=== PATIENT | female | born 1965 | race Asian ===

== ENCOUNTER 2017-06-16 09:17 | Emergency (ER) | payer MEDICAID ==
[2017-06-16 09:28] VITALS: BP 119/78; PULSE 88; RESP 16; TEMP 97.6; O2SAT 94
--- NOTE | 2017-06-16 09:51 | EDPHY ---
H & P Time Seen by Provider: 06/16/17 09:21 HPI/ROS: CHIEF COMPLAINT: Runny nose History by patient HISTORY OF PRESENT ILLNESS: 51-year-old woman presents complaining of runny and stuffy nose times more than 2 weeks. She describes the mucus from her nose as clear or white. Sometimes associated with some itchy eyes but no itchy throat or sore throat. She denies any cough. She has had no fever. She denies headache. She denies any rash. She has no known seasonal allergies. She is a smoker. She has tried Claritin with minimal relief. REVIEW OF SYSTEMS: As in HPI, and all other systems reviewed and are negative Smoking Status: Never smoked Physical Exam: General Appearance: Alert and no distress. Head: normocephalic, atraumatic, no sinus tenderness Eyes: Pupils equal and round no injection. Ears: TM clear bilat OP: mucus membranes moist, no tonsillar enlargement, no exudates Neck: no meningismus, no cervical nodes, no submandibular nodes Respiratory: Chest is nontender, lungs are clear to auscultation. Cardiac: regular rate and rhythm. Gastrointestinal: Abdomen is soft and nontender, no masses, bowel sounds normal. Musculoskeletal: Neck is supple and nontender. Extremities have full range of motion and are nontender. Skin: No rashes or lesions. Constitutional: Initial Vital Signs Temperature (C) 36.4 C 06/16/17 09:23 Heart Rate 88 06/16/17 09:23 Respiratory Rate 16 06/16/17 09:23 Blood Pressure 119/78 06/16/17 09:23 O2 Sat (%) 94 06/16/17 09:23 O2 Delivery Mode Room Air Allergies/Adverse Reactions: No Known Allergies Allergy (Verified 06/16/17 09:20) Home Medications: Medication Instructions Recorded Fluticasone Nasal [Flonase Nasal 2 sprays NASAL DAILY #1 mdi 06/16/17 Dale (RX)] MDM/Departure - [facility] ED Course/Re-evaluation: 51-year-old woman presents with URI versus seasonal allergy symptoms. Will give the patient a trial of Flonase. She has been instructed follow up primary care physician if there is no improvement or she develops fever gets worse in any way. - Depart Disposition: Home, Routine, Self-Care Clinical Impression: Allergic rhinitis Condition: Good Instructions: Allergic Rhinitis (ED) Additional Instructions: You were seen by Dr. Digna Rangel. Use cetirizine (Zyrtec) once a day for allergy symptoms of runny nose and itchy eyes. Try pseudoephedrine for nasal congestion. This is available over-the- counter from the pharmacist without a prescription. Use saline nasal spray to washout your nose then apply steroid nasal spray. Use a humidifier in the room where you sleep. Try hot drinks with honey for cough. Take ibuprofen 400-600mg 4 times daily and Tylenol 500-1000mg every 6 hours as needed for fever and/or pain. Return for any worsening or new concerns. Follow up her primary care physician if no improvement in 7-10 days. Prescriptions: Fluticasone Nasal [Flonase Nasal Dale (RX)] 2 sprays NASAL DAILY #1 mdi Referrals: Doctor Not,On Staff, MD [Primary Care Provider] - As per Instructions
== END 2017-06-16 10:05 | disposition home or self-care (01) ==
LOC: CED 09:17
DX: J30.9 Allergic rhinitis, unspecified (principal)

== ENCOUNTER 2017-07-16 13:34 | Emergency (ER) | payer MEDICAID ==
[2017-07-16 13:46] VITALS: RESP 16; TEMP 98.6
[2017-07-16] MEDS ORDERED: ALBUTEROL 3 ML DEYVIAL IH ONE (13:58)
[2017-07-16] MEDS ORDERED: AZITHROMYCIN 250 MG TAB PO ONE (13:59)
--- NOTE | 2017-07-16 14:05 | EDPHY ---
H & P Stated Complaint: chills last 2 days with,cough with sob this am @0400. Time Seen by Provider: 07/16/17 13:40 HPI/ROS: CHIEF COMPLAINT: Cough, shortness of breath HISTORY OF PRESENT ILLNESS: 51-year-old female presents reporting that for the last 2 days she has felt tired. Last night she thought she might have a low- grade fever. She woke at 4 o'clock this morning with a cough productive of clear and yellow sputum. Has been feeling short of breath. No upper respiratory infection symptoms. No runny nose, congestion, or sore throat. No headache. Does report mild body aches. No nausea or vomiting. No chest pain. No influenza vaccination this year. No PE risk factors. REVIEW OF SYSTEMS: Aside from elements discussed in the HPI, a comprehensive 10-point review of systems was reviewed and is negative. PAST MEDICAL HISTORY: Patient denies. No history of asthma. SOCIAL HISTORY: Nonsmoker. She does report smoke exposure at work. VITAL SIGNS Reviewed by me. Afebrile. Not tachypneic GENERAL: Well-developed, well-nourished, audible upper respiratory noise and wheezing. Does not appear in distress. HEENT: Atraumatic. Eyes: No icterus, no injection. Mouth: moist mucous membranes. Pharynx: No erythema. No tonsillar enlargement. No exudates. Neck : supple with no adenopathy. LUNGS: Wheezes superiorly and anteriorly. Clear posteriorly. No stridor auscultated. CARDIAC: Regular rate and rhythm, no rubs, murmurs or gallops. ABDOMEN: Soft, nontender, nondistended, bowel sounds normal. BACK: No CVA tenderness. EXTREMITIES: No trauma. No edema. Range of motion is normal throughout. NEURO: Alert and oriented, grossly nonfocal. SKIN: Warm and dry, no rash. PSYCHIATRIC: Normal mentation, no agitation. - Personal History LMP (Females 10-55): 15-21 Days Ago - Medical/Surgical History Hx Asthma: No Hx Chronic Respiratory Disease: No Hx Diabetes: No Hx Cardiac Disease: No Hx Renal Disease: No Hx Cirrhosis: No Hx Alcoholism: No Hx HIV/AIDS: No Hx Splenectomy or Spleen Trauma: No Other PMH: Med hx-laser tx for gums -2015,allergies. Surg-none - Social History Smoking Status: Never smoked Constitutional: Initial Vital Signs Temperature (C) 37.0 C 07/16/17 13:40 Heart Rate 76 07/16/17 13:40 Respiratory Rate 16 07/16/17 13:40 Blood Pressure 122/72 H 07/16/17 13:40 O2 Sat (%) 96 07/16/17 13:40 O2 Delivery Mode Room Air Allergies/Adverse Reactions: No Known Allergies Allergy (Verified 07/16/17 13:39) Home Medications: Medication Instructions Recorded Albuterol Hfa Anes Only [Proair 2 puffs IH QID #1 mdi 07/16/17 Hfa Icu (*)] Azithromycin [Zithromax] 250 mg PO DAILY #4 tab 07/16/17 Cetirizine HCl [Zyrtec] 07/16/17 predniSONE [prednisone 10mg (RX)] 40 mg PO DAILY 3 Days tab 07/16/17 Medical Decision Making - Diagnostics Imaging Results: Impression: Mild central bronchitis. No pneumonia.. Dictated By: Federico Melendez MD Imaging: I viewed and interpreted images myself ED Course/Re-evaluation: Patient received a albuterol nebulizer treatment. She reports improvement in her symptoms following this treatment. On re-examination she has no further wheezes. Influenza rapid swab is negative. Chest x-ray does not demonstrate any pneumonia. Patient is placed on azithromycin for bronchitis. She was also advised to use a meter dose inhaler 2-4 puffs every 4-6 hours for her cough. She was encouraged to push fluids and get plenty of rest. Tylenol and ibuprofen as needed for fever. Return if worsening. Differential Diagnosis: Differential diagnosis for the patient's cough was considered including but not limited to viral versus bacterial bronchitis, asthma, pulmonary emboli, upper respiratory infection, lower respiratory infection, influenza, and bronchospasm. - Data Points Medications Given: Discontinued Medications Albuterol (Proventil Neb) 3 ml IH EDNOW ONE Stop: 07/16/17 13:59 Last Admin: 07/16/17 14:19 Dose: 3 ml Azithromycin (Zithromax) 500 mg PO EDNOW ONE PRN Reason: Protocol Stop: 07/16/17 14:00 Last Admin: 07/16/17 14:19 Dose: 500 mg Departure - Departure Disposition: Home, Routine, Self-Care Clinical Impression: Acute bronchitis, Bronchospasm with bronchitis, acute Condition: Good Instructions: Albuterol (By breathing), Prednisone (By mouth), Azithromycin ( By mouth), Acute Bronchitis (ED), Bronchospasm (ED) Additional Instructions: Please use the metered dose inhaler to help control your coughing and wheezing and shortness of breath. You been given a prescription of prednisone. Please take this as directed for the next 2 days starting tomorrow. You been given a prescription of azithromycin. Please begin taking this as directed. Over the counter cold medications often contain both antihistamines and decongestants. If you have a runny nose, take an antihistamine. If you are congested, take a decongestant. If you have a sore throat, use Tylenol, or ibuprofen. Throat lozenges, throat sprays, or salt water gargles may also be helpful. Seek care urgently or follow up at the emergency department if you develop a fever, worsening symptoms despite the above treatment, shortness of breath, chest pain, vomiting, or other concerns. Referrals: NONE *PRIMARY CARE P,. [Primary Care Provider] - As per Instructions Prescriptions: Albuterol Hfa Anes Only [Proair Hfa Icu (*)] 2 puffs IH QID #1 mdi Azithromycin [Zithromax] 250 mg PO DAILY #4 tab predniSONE [prednisone 10mg (RX)] 40 mg PO DAILY 3 Days tab
[2017-07-16 15:42] VITALS: BP 110/72; PULSE 77; O2SAT 98
== END 2017-07-16 15:30 | disposition home or self-care (01) ==
LOC: CED 13:34
DX: J20.9 Acute bronchitis, unspecified (principal)
CPT/HCPCS: 71020-PO; 87400-PO

== ENCOUNTER 2017-09-19 12:43 | Emergency (ER) | payer MEDICAID ==
[2017-09-19 12:50] VITALS: RESP 16; O2SAT 96
--- NOTE | 2017-09-19 13:27 | CPEKG ---
Heart Rate: 71 RR Interval: 845 P-R Interval: 136 QRSD Interval: 82 QT Interval: 388 QTC Interval: 422 P [place]: 31 QRS [place]: 2 T Wave [place]: 18 EKG Severity - NORMAL ECG - EKG Impression: SINUS RHYTHM Electronically Signed By: Chong Rosales 19-Sep-2017 15:27:03
--- NOTE | 2017-09-19 13:28 | EDPHY ---
H & P Time Seen by Provider: 09/19/17 12:47 HPI/ROS: This patient reports ongoing coughing. She reports associated mild nasal congestion and shortness of breath been she states that her symptoms improved somewhat with the Z-Ty and albuterol when she was seen for bronchitis on 2016 but her symptoms never entirely resolved and have worsened in terms of increased frequency of cough recently. In addition, she reports in achy pain in her chest since this morning substernal location nonradiating with no clear exacerbating factors. This does not seem pleuritic. It is not worse with a deep breath or with cough. She tried Claritin [id number] medication without improvement her symptoms and came in for evaluation. She also reports associated frontal headache of moderate intensity similar to previous headaches. ROS: Constitutional: No fevers or chills. No significant fatigue. HEENT: No throat pain. No ear pain. Neuro: No confusion. No numbness tingling or weakness Pulmonary: No hemoptysis. No pleuritic pain. No respiratory distress. Cardiovascular: No leg swelling or leg pain. No heart palpitations. No lightheadedness. GI: No nausea vomiting or abdominal pain. Integumentary: No skin rash 10 point ROS is otherwise negative. Past Medical/Surgical History: Bronchitis last seen here 07/16/2017 treated with albuterol and Zithromax. Chest x-ray showed only bronchitis at that time. Smoking Status: Never smoked Physical Exam: Physical Exam Vital signs are normal. General: Pleasant female No acute distress HEENT: Nose: Clear discharge bilaterally. No sinus tenderness to percussion. Ears: External canals and tympanic membranes are clear with no erythema or abnormal findings bilaterally. Oropharynx: No erythema or exudates. No dysphonia. No drooling or stridor. Eyes: Pupils equal and react to light. Extraocular motions are intact. Neck: Supple with no meningismus. No lymphadenopathy Lungs: Clear to auscultation bilaterally with no rales, rhonchi or wheeze. No respiratory distress. Cardiac: Regular rate and rhythm with no murmur gallop or rub Skin: No rash or pallor. Neuro: Alert with no focal deficits noted. Initial differential diagnosis: Bronchitis, reactive airway disease, pulmonary lesion, myocardial ischemic disease Constitutional: Initial Vital Signs Temperature (C) 36.6 C 09/19/17 12:45 Heart Rate 75 09/19/17 12:45 Respiratory Rate 16 09/19/17 12:45 Blood Pressure 127/78 H 09/19/17 12:45 O2 Sat (%) 96 09/19/17 12:45 O2 Delivery Mode Room Air Allergies/Adverse Reactions: No Known Allergies Allergy (Verified 09/19/17 12:50) Home Medications: Medication Instructions Recorded Albuterol Hfa Anes Only [Proair 2 puffs IH Q4 PRN #1 mdi 09/19/17 Hfa Icu (*)] Albuterol Hfa Anes Only [Proair 2 puffs IH Q4 PRN #1 mdi 09/19/17 Hfa Icu (*)] Fluticasone Hfa 220 Mcg [Flovent 2 puffs IH DAILY #1 mdi 09/19/17 220 MCG Hfa MDI (*)] Fluticasone Hfa 220 Mcg [Flovent 2 puffs IH DAILY #1 mdi 09/19/17 220 MCG Hfa MDI (*)] MDM/Departure - MDM Diagnostics: 12 lead EKG performed at 1323 reveals sinus rhythm at 71 Intervals: Normal throughout [place]: Normal throughout ST segments: Normal throughout Overall assessment: Normal EKG Her CBC reveals a normal overall white blood cell count prominence of eosinophils in the differential. Imaging Results: Imaging Impressions Chest X-Ray 09/19/17 13:09 Impression: Findings consistent with airways disease are noted. Medications Given: Discontinued Medications Albuterol/Ipratropium (Duoneb) 3 ml IH EDNOW ONE Stop: 09/19/17 13:32 Last Admin: 09/19/17 13:34 Dose: 3 ml ED Course/Re-evaluation: Patient's peak flow is low at 300 with a predicted of 453 DuoNeb with subjective improvement but peak flow only improved to 325 on recheck. Discussion: I think this patient has ongoing cough is attributable to seasonal allergies or viral URI triggering reactive airway disease with coughing. Counseled her regarding this. Her CBC with prominence of eosinophils and symptomatic improvement with antihistamines are also consistent with this. While her peak flows diminished today she does not have respiratory distress hypoxia or other concerning findings. I think that her chest discomfort is attributable to the bronchial constriction. Her EKG is normal and she has no risk factors for coronary disease or PE. Will plan to treat her with Flovent steroid inhaler, albuterol with spacer and antihistamines with follow up with her primary care physician. I answered all of her questions. The patient understands need to return to the emergency department should she develop any worsening of her symptoms despite the treatment plan. I gave her the peak flow meter to carry home with her and she will continue to moderate her peak flows with treatment at home. - Depart Disposition: Home, Routine, Self-Care Clinical Impression: Viral URI Condition: Good Instructions: Reactive Airways Disease (ED) Additional Instructions: Diagnoses: Seasonal allergies versus viral upper respiratory infection 2. Reactive airway disease Plan: Humidifier Albuterol inhaler with spacer for cough, wheeze or shortness of breath Flovent steroid inhaler Zyrtec or similar nonsedating [id number] anti histamine daily Call your primary care physician to arrange follow-up appointment for further evaluation Monitor your peak flow. As you improve you should improve increase her peak flow to and expected baseline of around 450 Return for any significant worsening despite the treatment plan. Prescriptions: Albuterol Hfa Anes Only [Proair Hfa Icu (*)] 2 puffs IH Q4 PRN #1 mdi PRN Reason: Wheezing Albuterol Hfa Anes Only [Proair Hfa Icu (*)] 2 puffs IH Q4 PRN #1 mdi PRN Reason: Wheezing Fluticasone Hfa 220 Mcg [Flovent 220 MCG Hfa MDI (*)] 2 puffs IH DAILY #1 mdi Fluticasone Hfa 220 Mcg [Flovent 220 MCG Hfa MDI (*)] 2 puffs IH DAILY #1 mdi Referrals: NONE *PRIMARY CARE P,. [Primary Care Provider] - As per Instructions Print Language: Finnish
[2017-09-19] MEDS ORDERED: IPRATROPIUM/ALBUTEROL 3 ML DEYVIAL IH ONE (13:31)
[2017-09-19 14:17] LABS: PLATELET COUNT 386 10^3/uL (150-400)
[2017-09-19 15:06] VITALS: BP 110/78; PULSE 74; TEMP 98.2
== END 2017-09-19 15:05 | disposition home or self-care (01) ==
LOC: CED 12:43
DX: J06.9 Acute upper respiratory infection, unspecified (principal)
CPT/HCPCS: 71046-PO; 85025-PO

== ENCOUNTER → 2018-11-05 | Outpatient (CLI) | payer OTHER | LOC: BRMIMAGING 07:58 | PROVIDERS: ATTEND Family Medicine | DX: Z12.31 Encounter for screening mammogram for malignant neoplasm of breast (principal) ==